=== PATIENT | male | born 1990 | race Caucasian/White ===

== ENCOUNTER 2019-10-04 19:38 | Emergency (ER) | payer MEDICAID ==
[~2019-10-04] VITALS: Ht 167.6 cm; Wt 81.6 kg
--- NOTE | 2019-10-04 19:48 | NUR ---
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 -HEAD INJURY, SKIN INTACT, HX OF LEFT SHOULDER DISLOCATION X2 TO ER BED 2 AWAITING EVAL
--- NOTE | 2019-10-04 19:51 | NUR ---
CONSENT FOR CONSCIOUS SEDATION AND LEFT SHOULDER REDUCTION IS SIGNED BY PATIENT.
[2019-10-04] MEDS ORDERED: PROPOFOL 20 ML IV ONE (19:58)
[2019-10-04] MEDS ORDERED: PROPOFOL 200 MG/20 ML VIAL IV ONE (20:00)
--- NOTE | 2019-10-04 20:09 | NUR ---
PT POST CONSCIOUS SEDATION AND L SHOULDER DISLOCATION, VSS, RT AT BESIDE, TECH AT BEDSIDE FOR XRAY
[2019-10-04 20:35] VITALS: BP 109/68
--- NOTE | 2019-10-04 20:35 | NUR ---
Patient discharged to home in stable condition. Written and verbal after care instructions given. Patient verbalizes understanding of instruction.
== END 2019-10-04 20:35 | disposition home or self-care (01) ==
LOC: ER 19:38
DX: M24.412 Recurrent dislocation, left shoulder (principal); W16.92XA Jumping or diving into unspecified water causing other injury, initial encounter; Y93.39 Activity, other involving climbing, rappelling and jumping off; Y92.34 Swimming pool (public) as the place of occurrence of the external cause; Y99.8 Other external cause status
CPT/HCPCS: 23650; 73020 ×2; 99152; 99285; J2704; J7030; G0500

== ENCOUNTER 2020-02-26 15:49 | Emergency (ER) | payer MEDICAID ==
[~2020-02-26] VITALS: Ht 167.6 cm; Wt 81.6 kg
--- NOTE | 2020-02-26 15:50 | NUR ---
LEFT SHOULDER DISLOCATION. PATIENT A/OX4, BREATHING EVEN AND UNLABORED, SITTING ON THE BED, C/O SEVERE PAIN, UNABLE TO MOVE LEFT SHOULDER.
[2020-02-26] MEDS ORDERED: PROPOFOL 0 ML IV ONE (16:19)
[2020-02-26] MEDS ORDERED: HYDROMORPHONE 1 MG/1 ML DISP.SYRIN ONE (16:19)
[2020-02-26] MEDS ORDERED: IV NS 0.9% 1,000 ML IV ONE (16:30)
[2020-02-26] MEDS ORDERED: PROPOFOL 200 MG/20 ML VIAL IV ONE (16:30)
[2020-02-26] MEDS ORDERED: HYDROMORPHONE 1 MG/1 ML DISP.SYRIN IV ONE (16:30)
--- NOTE | 2020-02-26 16:30 | NUR ---
PATIENT SET UP FOR MODERATE SEDATION FOR LEFT SHOULDER REDUCTION.
[2020-02-26] MEDS ORDERED: PROPOFOL 20 ML IV ONE (16:34)
--- NOTE | 2020-02-26 17:12 | NUR ---
PATIENT TOLERATED PROCEDURE WELL. AWAKE, ALERT AND ORIENTED X4, NO DISTRESS NOTED, VITALS STABLE.
--- NOTE | 2020-02-26 17:56 | NUR ---
PATIENT RESTING, NO DISTRESS NOTED.
--- NOTE | 2020-02-26 18:12 | NUR ---
Patient a/ox4, breathing even and unlabored, no sob ntoed. Needs attended, Sling in placed. Ambulatory with steady gait. IV removed. Catheter intact and site benign. Pressure and 4x4 applied to site. No bleeding noted.Patient discharged to home in stable condition. Written and verbal after care instructions given. Patient verbalizes understanding of instruction.
[2020-02-26 18:13] VITALS: BP 135/86
== END 2020-02-26 18:13 | disposition home or self-care (01) ==
LOC: ER 15:55
DX: S43.015A Anterior dislocation of left humerus, initial encounter (principal); W06.XXXA Fall from bed, initial encounter; Y93.89 Activity, other specified; Y92.89 Other specified places as the place of occurrence of the external cause; Y99.8 Other external cause status
CPT/HCPCS: 23650; 73020 ×2; 96361; 96374; 99152; 99285; J1170; J2704; J7030; G0500

== ENCOUNTER 2020-04-06 01:24 | Emergency (ER) | payer MEDICAID ==
[~2020-04-06] VITALS: Ht 162.6 cm; Wt 81.6 kg
--- NOTE | 2020-04-06 01:30 | NUR ---
BIBS C/O L SHOULDER DISLOCATION. TO ER BED 16
[2020-04-06] MEDS ORDERED: PROPOFOL 20 ML IV ONE (01:42)
[2020-04-06] MEDS ORDERED: PROPOFOL 200 MG/20 ML VIAL IV ONE (02:00)
--- NOTE | 2020-04-06 02:24 | NUR ---
EXTERNAL REDUCTION WITH CONCIOUS SEDATION PERFORMED AT BEDSIDE BY MD, RT AT BEDSIDE. VSS
--- NOTE | 2020-04-06 02:37 | NUR ---
pt is awake and alert. breathing evenly. no SOB. No respiratory distress. satting 100% on r/a. reported feeling well and ready to be discharged. here to provided ride to the pt.
[2020-04-06 02:49] VITALS: BP 117/60
--- NOTE | 2020-04-06 02:49 | NUR ---
Patient discharged to home in stable condition. Written and verbal after care instructions given. Patient verbalizes understanding of instruction.IV removed. Catheter intact and site benign. Pressure and 4x4 applied to site. No bleeding noted.
== END 2020-04-06 02:50 | disposition home or self-care (01) ==
LOC: ER 01:26
DX: S43.085A Other dislocation of left shoulder joint, initial encounter (principal); F17.200 Nicotine dependence, unspecified, uncomplicated; W22.8XXA Striking against or struck by other objects, initial encounter; Y93.89 Activity, other specified; Y92.89 Other specified places as the place of occurrence of the external cause; Y99.8 Other external cause status
CPT/HCPCS: 23650; 73020; 73030; 99152; 99285; J2704; J7030; G0500

== ENCOUNTER 2020-05-21 17:45 | Emergency (ER) | payer MEDICAID ==
[~2020-05-21] VITALS: Ht 167.6 cm; Wt 85.7 kg
[2020-05-21] MEDS ORDERED: PROPOFOL 200 MG/20 ML VIAL IV ONE ×2 (18:00→19:00)
[2020-05-21] MEDS ORDERED: PROPOFOL 20 ML IV ONE (18:08)
--- NOTE | 2020-05-21 18:19 | NUR ---
PREP FOR MOD SED FOR LEFT SHOULDER REDUCTION
--- NOTE | 2020-05-21 18:22 | NUR ---
GAVE 100MG OF PROPOFOL PER DR. STOKES'S ORDER.
--- NOTE | 2020-05-21 18:48 | NUR ---
LEFT SHOULDER DISLOCATION SUCCESSFUL, SLING APPLIED.
--- NOTE | 2020-05-21 19:03 | NUR ---
Patient a/ox4, verbally responsive, breathing even and unlabored, no sob noted, ambulatory with steady gait. IV removed. Catheter intact and site benign. Pressure and 4x4 applied to site. No bleeding noted.Patient discharged to home in stable condition. Written and verbal after care instructions given. Patient verbalizes understanding of instruction. Instructed not to drive, present in the waiting room.
[2020-05-21 19:07] VITALS: BP 150/81
== END 2020-05-21 19:08 | disposition home or self-care (01) ==
LOC: ER 17:48
DX: S43.085A Other dislocation of left shoulder joint, initial encounter (principal); F17.200 Nicotine dependence, unspecified, uncomplicated; X58.XXXA Exposure to other specified factors, initial encounter; Y93.89 Activity, other specified; Y92.89 Other specified places as the place of occurrence of the external cause; Y99.8 Other external cause status
CPT/HCPCS: 23650; 73030 ×2; 99152; 99285; J2704; J7030; G0500

== ENCOUNTER 2020-09-07 13:42 | Emergency (ER) | payer MEDICAID ==
[~2020-09-07] VITALS: Ht 167.6 cm; Wt 81.6 kg
--- NOTE | 2020-09-07 13:42 | NUR ---
PT BIB C/O L SHOULDER DISLOCATION, TRYING TO LIFT HIS KID. PT IS AAOX4, NOT IN RESPIRATORY DISTRESS, V/S STABLE, KEPT REST AND COMFORTABLE. WILL CONTINUE TO MONITOR.
--- NOTE | 2020-09-07 13:50 | NUR ---
IV LINE ESTABLISHED G20 R HAND.
--- NOTE | 2020-09-07 13:57 | NUR ---
SEEN AND EXAMINED BY .
--- NOTE | 2020-09-07 14:00 | NUR ---
SENIOR ENVIRONMENTAL TECHNICIAN AT BEDSIDE FOR XRAY.
[2020-09-07] MEDS ORDERED: ONDANSETRON HCL/PF 4 MG/2 ML VIAL ONE (14:25)
[2020-09-07] MEDS ORDERED: MORPHINE SULFATE INJ 4 MG/ML DISP.SYRIN ONE (14:25)
[2020-09-07] MEDS ORDERED: ONDANSETRON 4 MG TAB.RAPDIS SL ONE (14:30)
[2020-09-07] MEDS ORDERED: MORPHINE SULFATE INJ 2 MG/ML DISP.SYRIN IM ONE (14:30)
[2020-09-07] MEDS ORDERED: PROPOFOL 20 ML IV ONE (15:02)
--- NOTE | 2020-09-07 15:05 | NUR ---
CALLED RT AT BEDSIDE FOR MODERATE SEDATION PROCEDURE.
[2020-09-07] MEDS ORDERED: PROPOFOL 200 MG/20 ML VIAL IV ONE (16:00)
[2020-09-07 16:08] VITALS: BP 128/68
--- NOTE | 2020-09-07 16:08 | NUR ---
IV removed. Catheter intact and site benign. Pressure and 4x4 applied to site. No bleeding noted. Patient discharged to home in stable condition. Written and verbal after care instructions given. Patient verbalizes understanding of instruction.
== END 2020-09-07 16:09 | disposition home or self-care (01) ==
LOC: ER 13:47
DX: S43.085A Other dislocation of left shoulder joint, initial encounter (principal); F17.200 Nicotine dependence, unspecified, uncomplicated; X50.9XXA Other and unspecified overexertion or strenuous movements or postures, initial encounter; Y93.89 Activity, other specified; Y92.89 Other specified places as the place of occurrence of the external cause; Y99.8 Other external cause status
CPT/HCPCS: 23650; 73030 ×2; 96374; 96375; 99152; 99285; J2270; J2405; J2704; J7030; G0500